=== PATIENT | male | born 1950 | race Hispanic/Latino ===

== ENCOUNTER 2017-12-02 07:08 | Day surgery (SDC) | payer MEDICARE ==
[2012-07-08 23:06] VITALS: PULSE 90
[2017-11-28 13:45] VITALS: BMI 29.8
[2017-12-02] MEDS ORDERED: Lidocaine 1% Inj (20ml) ONE (08:19)
[2017-12-02] MEDS ORDERED: Propofol 10 mg/ml Inj (20 ML) ONE (08:19)
[2017-12-02] MEDS ORDERED: Sodium Chloride 0.9% 1,000 ML IV SCH (10:30)
[2017-12-02 11:19] VITALS: BP 143/65; PULSE 64; RESP 16; TEMP 98.3; O2SAT 96
== END 2017-12-02 12:00 | disposition home or self-care (01) ==
LOC: ENDO 07:08
PROVIDERS: ATTEND Internal Medicine Gastroenterology
DX: Z12.11 Encounter for screening for malignant neoplasm of colon (principal); D12.5 Benign neoplasm of sigmoid colon; K57.30 Diverticulosis of large intestine without perforation or abscess without bleeding; K64.8 Other hemorrhoids; Z86.010 Personal history of colon polyps; Z80.0 Family history of malignant neoplasm of digestive organs; Z90.49 Acquired absence of other specified parts of digestive tract; Z88.0 Allergy status to penicillin; E11.9 Type 2 diabetes mellitus without complications; I10 Essential (primary) hypertension; Z90.79 Acquired absence of other genital organ(s); Z85.46 Personal history of malignant neoplasm of prostate; K76.89 Other specified diseases of liver; K21.9 Gastro-esophageal reflux disease without esophagitis; K29.70 Gastritis, unspecified, without bleeding
CPT/HCPCS: 45380; 88305; J2704; J7030; J7040

== ENCOUNTER 2017-12-25 12:20 | Emergency (ER) | payer MEDICARE ==
[2017-12-25 12:21] VITALS: PULSE 90; BMI 29.8
--- NOTE | 2017-12-25 13:29 | ED PDOC ---
Arrival/HPI - General Chief Complaint: Dizziness/Lightheaded Time Seen by Provider: 12/25/17 12:32 Historian: Patient - History of Present Illness Narrative History of Present Illness (Text): 12/25/17 13:26 67 year old male presents to the emergency department for evaluation of lightheaded, nausea, and vomiting x3 that began this morning. Patient reports she was asymptomatic last night, the lightheadedness was worse when tying her shoes/lying down. She notes not being able to keep her breakfast down. In the emergency department the patient reports feeling better, no longer lightheaded and no nausea. Denies syncope, fever, changes in vision, and any other associated symptoms. 12/25/17 13:34 Past Medical History - Provider Review Nursing Documentation Reviewed: Yes - Tetanus Immunization Tetanus Immunization: Up to Date - Cardiac Hx Cardiac Disorders: Yes Hx Atrial Fibrillation: Yes Hx Congestive Heart Failure: Yes Hx Hypertension: Yes Hx Pacemaker: No - Pulmonary Hx Respiratory Disorders: No - Neurological Hx Neurological Disorder: Yes Hx Dizziness: Yes Hx Paralysis: No - HEENT Hx HEENT Disorder: Yes (wears bifocals) - Renal Hx Renal Disorder: No - Endocrine/Metabolic Hx Endocrine Disorders: Yes Hx Diabetes Mellitus Type 2: Yes Other/Comment: parathyroidectomy - Hematological/Oncological Hx Blood Disorders: No Hx Blood Transfusions: No Hx Blood Transfusion Reaction: No - Integumentary Hx Dermatological Disorder: No - Musculoskeletal/Rheumatological Hx Musculoskeletal Disorders: Yes Hx Falls: No - Gastrointestinal Hx Gastrointestinal Disorders: Yes Hx Fatty Liver Disease: Yes - Genitourinary/Gynecological Hx Genitourinary Disorders: Yes Hx Prostate Cancer: Yes Hx Prostate Problems: Yes - Psychiatric Hx Psychophysiologic Disorder: No Hx Emotional Abuse: No Hx Physical Abuse: No Hx Substance Use: No - Surgical History Hx Cholecystectomy: Yes Hx Parathyroidectomy: Yes - Anesthesia Hx Anesthesia Reactions: No Hx Malignant Hyperthermia: No - Suicidal Assessment Feels Threatened In Home Enviroment: No Family/Social History - Physician Review Nursing Documentation Reviewed: Yes Family/Social History: Unknown Family HX Smoking Status: Never Smoked Hx Alcohol Use: Yes (STOPPED ETOH INTAKE DUE TO DIABETES) Hx Substance Use: No Hx Substance Use Treatment: No Allergies/Home Meds Allergies/Adverse Reactions: Allergies Penicillins Allergy (Verified 12/25/17 13:00) RASH Home Medications: Home Meds Medication Instructions Recorded Confirmed Atorvastatin Calcium [Lipitor] 10 mg PO DAILY 02/22/13 10/22/18 Ramipril [Altace] 5 mg PO DAILY 04/04/12 12/02/17 Calcium Carbonate [Calcium] 500 mg PO DAILY 11/28/17 12/02/17 Digoxin [Lanoxin] 0.25 mg PO DAILY 11/28/17 12/02/17 Fluticasone/Vilanterol 100/25 1 puff INH DAILY 11/28/17 12/02/17 [Breo Ellipta 100-25 MCG INH] Furosemide [Lasix] 40 mg PO DAILY 11/28/17 12/02/17 Glipizide [Glipizide Xl] 5 mg PO DAILY 11/28/17 12/02/17 Glucosam/Chond/Hyalu/Cf Borate 1 each PO DAILY 11/28/17 12/02/17 [Move Free Joint Health Tablet] Multivitamin [Multivitamins] 1 each PO DAILY 11/28/17 12/02/17 RX: Calcitriol 0.25 mcg PO DAILY 11/28/17 12/02/17 Ranitidine HCl [Zantac] 150 mg PO BID 11/28/17 12/02/17 metFORMIN [glucOPHAGE] 500 mg PO DAILY 11/28/17 12/02/17 Review of Systems - Physician Review All systems were reviewed & negative as marked: Yes - Review of Systems Constitutional: Normal, Other ((+) lightheaded.). absent: Fevers Eyes: Normal. absent: Vision Changes Gastrointestinal: Nausea, Vomiting (x3) Neurological: absent: Normal, Other ((-) syncope. ) Physical Exam Vital Signs Reviewed: Yes Vital Signs Pulse Resp BP Pulse Ox 12/25/17 12:48 88 17 129/96 H 98 Temperature: Afebrile Blood Pressure: Other (129/96) Respiratory Rate: Normal Appearance: Positive for: Well-Appearing, Non-Toxic, Comfortable Mental Status: Positive for: Alert and Oriented X 3 - Systems Exam Head: Present: Atraumatic, Normocephalic Pupils: Present: PERRL Extroacular Muscles: Present: EOMI, Other ((-) nystagmus.) Mouth: Present: Moist Mucous Membranes Neck: Present: Normal Range of Motion Respiratory/Chest: Present: Clear to Auscultation, Good Air Exchange. No: Respiratory Distress, Accessory Muscle Use, Wheezes, Rales, Rhonchi Cardiovascular: Present: Regular Rate and Rhythm, Normal S1, S2. No: Murmurs Abdomen: Present: Normal Bowel Sounds. No: Tenderness, Distention, Peritoneal Signs Upper Extremity: Present: Neurovascularly Intact Lower Extremity: Present: Neurovascularly Intact Neurological: Present: GCS=15, CN II-XII Intact, Speech Normal, Other (5/5 strength x4 extremities.) Medical Decision Making ED Course and Treatment: 12/25/17 13:33 Plan: -Blood sent. Progress/Update: Patient has no complaints, feels better, and is able to eat. Discussed results with the patient. Patient notes he has an appointment with PMD Dr. Zhao on 12/30/17. Patient is stable for discharge home. 12/25/17 14:42 - EKG Interpretation EKG Interpretation (Text): 12/25/17 13:49 EKG: --normal sinus --rate 85 bpm --left axis deviation --left bundle branch blockage, --no ST elevation --normal QTC 452. Interpreted by ED Physician: Yes - Scribe Statement The provider has reviewed the documentation as recorded by the Scribe (Jo-Ann Chapman) Provider Attestation: All medical record entries made by the Scribe were at my direction and personally dictated by me. I have reviewed the chart and agree that the record accurately reflects my personal performance of the history, physical exam, medical decision making, and the department course for this patient. I have also personally directed, reviewed, and agree with the discharge instructions and disposition. Disposition/Present on Arrival - Present on Arrival Any Indicators Present on Arrival: No History of DVT/PE: No History of Uncontrolled Diabetes: No Urinary Catheter: No History of Decub. Ulcer: No History Surgical Site Infection Following: None - Disposition Have Diagnosis and Disposition been Completed?: Yes Diagnosis: Dizziness, Nausea & vomiting Disposition: HOME/ ROUTINE Disposition Time: 02:42 Condition: GOOD Discharge Instructions (ExitCare): Nausea and Vomiting, Adult (DC), Dizziness, Nonvertigo, (DC) Referrals: Micah Zhao MD [Primary Care Provider] - Follow up with primary Forms: [employer] (Amharic)
[2017-12-25 14:14] LABS: BASO # 0.03 K/mm3 (0.0-2.0); BASO % 0.4 % (0.0-3.0); EOS # 0.1 (0.0-0.7); EOS % 1.1 % (1.5-5.0); GRAN # 5.27 (1.4-6.5); GRAN % 74.4 % (50.0-68.0); HEMOGLOBIN 15.9 g/dL (14.0-18.0); LYMPH # 1.3 (1.2-3.4); LYMPH % 17.8 % (22.0-35.0); MEAN CELL VOLUME 90.3 fl (80.0-105.0); MEAN CORPUSCULAR HGB CONC 34.3 g/dl (31.0-37.0); MEAN PLATELET VOLUME 9.6 fl (7.0-11.0); MONO # 0.5 (0.1-0.6); MONO % 6.3 % (1.0-6.0); RBC 5.13 10^6/uL (3.5-6.1); RED CELL DISTRIBUTION WIDTH 12.8 % (11.5-14.5); WHITE BLOOD COUNT 7.1 10^3/uL (4.5-11.0)
[2017-12-25 14:35] LABS: ALB/GLOB RATIO 1.5 (1.1-1.8); ALBUMIN 4.2 g/dL (3.0-4.8); ALT/SGPT 55 U/L (7-56); AST/SGOT 34 U/L (17-59); BLOOD UREA NITROGEN 13 mg/dL (7-21); CALCIUM 9.2 mg/dL (8.4-10.5); GFR NON-AFRICAN AMERICAN > 60
[2017-12-25 14:47] VITALS: BP 165/89; PULSE 81; RESP 18; TEMP 98; O2SAT 95
--- NOTE | 2017-12-25 18:41 | CARD ---
APPROVED REPORT Date of service: 12/25/2017 EKG Measurement Heart [id number] <Conclusion> Normal sinus rhythm Possible Left atrial enlargement Left axis deviation Nonspecific intraventricular block Left anterior fascicular block Abnormal ECG
== END 2017-12-25 14:44 | disposition home or self-care (01) ==
LOC: ED 12:20
DX: R42 Dizziness and giddiness (principal); R11.2 Nausea with vomiting, unspecified; I48.91 Unspecified atrial fibrillation; I11.0 Hypertensive heart disease with heart failure; I50.9 Heart failure, unspecified